=== PATIENT | male | born 1950 | race Caucasian/White ===

== ENCOUNTER 2019-07-04 16:01 | Emergency (ER) | payer MEDICARE, MEDICAID ==
[~2019-07-04] VITALS: Ht 182.9 cm; Wt 163.3 kg
[~2019-07-04 16:01] MED LIST: ALDACTONE25 MG PO; ATENOLOL 100MG100 M2 PO; BYETTA SQ; CARDURA2 MG PO; CIPROFLOXACIN500 M1 PO; CIPROFLOXACIN500 M3 GT; COZAAR100 MG PO; CYMBALTA60 MG PO; FLAGYL500 MG PO; FLOMAX PO; FUROSEMIDE 40 M40 M1 PO; GLYBURIDE 5 MG T5 M1 PO; HYTRIN 2MG CAPSU2 M1 PO; K-DUR 20 MEQ T20 MEQ PO; KEFLEX500 MG PO; LANTUS SC; LEVOXYL100 MCG PO; LEVOXYL88 MCG PO; METOCLOPRAMIDE10 MG PO; NORVASC 2.5 MG2.5 M1 PO; OXYCONTIN10 MG PO; PERCOCET 5-3251 EACH PO; PROMETHAZINE12.5 M1 PO; PROTONIX40 M2 PO; PYRIDIUM200 MG PO; SIMVASTATIN40 MG PO; TRANSDERM-SCO1 PATC1 TD; VITAMIN D1000 UNI1 PO; [UNRECOGNIZED DRUG - REMARK]
[2019-07-04] MEDS ORDERED: LYRICA 50 MG50 MG PO (16:26)
[2019-07-04] MEDS ORDERED: LOPRESSOR50 PO (16:27)
[2019-07-04] MEDS ORDERED: PAXIL10 MG PO (16:27)
[2019-07-04] MEDS ORDERED: ERYTHROCIN STE250 MG PO (16:27)
[2019-07-04] MEDS ORDERED: OMEPRAZOLE 20 M20 M1 PO (16:28)
[2019-07-04] MEDS ORDERED: PROSCAR 5MG TABL5 MG PO (16:28)
[2019-07-04] MEDS ORDERED: LASIX 40 MG TAB40 M2 PO (16:29)
[2019-07-04] MEDS ORDERED: VESICARE 5 MG TA5 MG PO (16:29)
[2019-07-04] MEDS ORDERED: PERCOCET 10-321 EACH PO (16:30)
[2019-07-04] MEDS ORDERED: NOVOLOG100 UNIT/1 SUBQ (16:31)
[2019-07-04] MEDS ORDERED: ANDRODERM1 EAC2 INJECTION (16:32)
[2019-07-04] MEDS ORDERED: TRESIBA100 UNIT/1 SUBQ (16:32)
[2019-07-04] MEDS ORDERED: SUPER B COMPLE1 EAC2 PO (16:33)
[2019-07-04] MEDS ORDERED: CALCIUM MAG ZINC D (16:33)
[2019-07-04] MEDS ORDERED: UNICOMPLEX M TA1 TA1 PO (16:34)
[2019-07-04] MEDS ORDERED: FISH OIL 1,001000 M2 PO (16:35)
[2019-07-04] MEDS ORDERED: MUCUS RELIEF600 M1 PO (16:36)
[2019-07-04] MEDS ORDERED: CLARITIN10 MG PO (16:36)
[2019-07-04 16:39] LABS: ABSOLUTE BASOPHILS 0.1 thou/uL (0.0-0.2); ABSOLUTE EOSINOPHILS 0.1 thou/uL (0.0-0.7); ABSOLUTE LYMPHOCYTES 0.9 thou/uL (0.8-5.3); ABSOLUTE MONOCYTES 0.9 thou/uL (0.0-1.2); ABSOLUTE NEUTROPHILS 7.1 thou/uL (1.6-8.1); BASOPHILS 0.7 %; EOSINOPHILS 1.3 %; HEMOGLOBIN 14.5 gm/dL (14.0-18.0); LYMPHOCYTES 10.1 %; MONOCYTES 10.2 %; NUCLEATED RBCS 0 /100WBC; PLATELET COUNT* 179 thou/uL (150-400); POLYS 77.7 %; RBC 5.37 mil/uL (4.50-6.00); RDW-CV 16.3 % (10.5-14.5); WBC 9.1 thou/uL (4.0-11.0)
[2019-07-04 16:48] LABS: CREATININE 1.9 mg/dL (0.6-1.3); POTASSIUM 4.4 mmol/L (3.5-5.1)
[2019-07-04 16:53] LABS: TOTAL BILIRUBIN 0.5 mg/dL (<0.1-1.0); TOTAL PROTEIN 7.1 g/dL (6.4-8.2)
[2019-07-04] MEDS ORDERED: DOXYCYCLINE 10100 MG PO (17:43)
[2019-07-04 18:12] VITALS: BP 147/84
== END 2019-07-04 18:13 | disposition home or self-care (01) ==
LOC: M.ERS 16:01
PROVIDERS: Nurse Practitioner Family
DX: L02.415 Cutaneous abscess of right lower limb (principal); I10 Essential (primary) hypertension; E78.00 Pure hypercholesterolemia, unspecified; E11.40 Type 2 diabetes mellitus with diabetic neuropathy, unspecified; H54.8 Legal blindness, as defined in USA; F17.200 Nicotine dependence, unspecified, uncomplicated; Z79.4 Long term (current) use of insulin